=== PATIENT | male | born 1940 | race Caucasian/White ===

== ENCOUNTER 2021-07-14 15:43 | Inpatient (IN) | payer MEDICARE ==
[2021-07-14 16:41] LABS: #Eosinphils 0.1 thou/uL (0.0-0.7); #Lymphocytes 0.8 thou/uL (1.20-3.40); #Monocytes 0.4 thou/uL (0.11-0.59); #Neutrophils 3.2 thou/uL (1.40-6.50); %Basophils 0.4 % (0.0-1.0); %Eosinophils 1.8 % (0.0-10.0); %Lymphocytes 17.7 % (21.0-51.0); %Neutrophils 72.1 % (42.0-75.0); Hemoglobin 12.7 g/dL (14.0-18.0); Mean Corpuscular HGB CONC 32.4 g/dL (32.0-36.0); Mean Corpuscular Hemoglobin 30.7 pg (27.0-31.0); Mean Corpuscular Volume 94.9 fL (78.0-98.0); Mean Platelet Volume 7.1 fL (7.4-10.4); Platelet Count 180 thou/uL (130-400); RBC Distribution Width 15.6 % (11.5-14.5); Red Blood Cell (RBC) Count 4.13 mill/uL (4.70-6.10); White Blood Cell (WBC) Count 4.4 thou/uL (4.8-10.8)
[2021-07-14 17:14] LABS: ALT (SGPT) 25 U/L (8-55); AST (SGOT) 26 U/L (5-34); Albumin 3.5 g/dL (3.4-4.8); Alkaline Phosphatase 103 U/L (40-110); Anion Gap 14 mmol/L (10-20); BUN (Urea Nitrogen) 20 mg/dL (8.4-25.7); Bilirubin, Total 0.3 mg/dL (0.2-1.2); Calc. Creatinine Clearance 0 mL/min (70-130); Calcium 8.5 mg/dL (7.8-10.44); Carbon Dioxide 23 mmol/L (23-31); Chloride 103 mmol/L (98-107); Glucose 129 mg/dL (83-110); Protein, Total 6.5 g/dL (5.8-8.1); Sodium 136 mmol/L (136-145)
[2021-07-14 17:34] LABS: CKMB 3.8 ng/mL (0-6.6)
[2021-07-14] MEDS ORDERED: Boostrix 0.5 ML (Tdap) VIAL ONE (18:04)
[2021-07-14] MEDS ORDERED: Cephalexin 250 MG CAP ONE (18:37)
[2021-07-14] MEDS ORDERED: Bacitracin 1 PK ONE ×2 (18:40→18:44)
[2021-07-14 19:49] LABS: Lactic Acid 1.5 mmol/L (0.5-2.2)
[2021-07-14] MEDS ORDERED: Ondansetron PF 4 MG/2 ML Vial IVP PRN (20:10)
[2021-07-14] MEDS ORDERED: Acetaminophen 650 MG Suppository PR PRN (20:10)
[2021-07-14] MEDS ORDERED: Ondansetron ODT 4 MG TAB PO PRN (20:10)
[2021-07-14] MEDS ORDERED: Acetaminophen 325 MG TAB PO PRN (20:10)
[2021-07-14] MEDS ORDERED: Atropine Sulfate 1 mg/1 ml Vial IVP PRN (20:13)
[2021-07-14 23:15] LABS: Troponin I 0.059 ng/mL (< 0.028)
[2021-07-14 23:53] VITALS: BMI 22.7
[2021-07-15] MEDS ORDERED: HYDROcodone/Acetaminophen 5/325 mg Tablet PO PRN ×2 (04:55→16:45)
[2021-07-15 05:03] LABS: #Eosinphils 0.1 thou/uL (0.0-0.7); #Lymphocytes 0.9 thou/uL (1.20-3.40); #Monocytes 0.5 thou/uL (0.11-0.59); #Neutrophils 3.3 thou/uL (1.40-6.50); %Basophils 0.2 % (0.0-1.0); %Eosinophils 1.3 % (0.0-10.0); %Lymphocytes 19.1 % (21.0-51.0); %Monocytes 10.5 % (0.0-10.0); %Neutrophils 68.9 % (42.0-75.0); Mean Corpuscular HGB CONC 32.4 g/dL (32.0-36.0); Mean Corpuscular Hemoglobin 30.6 pg (27.0-31.0); Mean Corpuscular Volume 94.3 fL (78.0-98.0); Mean Platelet Volume 7.2 fL (7.4-10.4); Platelet Count 185 thou/uL (130-400); RBC Distribution Width 15.8 % (11.5-14.5); Red Blood Cell (RBC) Count 4.26 mill/uL (4.70-6.10); White Blood Cell (WBC) Count 4.8 thou/uL (4.8-10.8)
[2021-07-15 05:31] LABS: Anion Gap 11 mmol/L (10-20); BUN (Urea Nitrogen) 17 mg/dL (8.4-25.7); Calc. Creatinine Clearance 82 mL/min (70-130); Calcium 8.9 mg/dL (7.8-10.44); Carbon Dioxide 25 mmol/L (23-31); Chloride 104 mmol/L (98-107); Glucose 111 mg/dL (83-110); Potassium 4.3 mmol/L (3.5-5.1); Sodium 136 mmol/L (136-145)
[2021-07-15] MEDS: Lisinopril 5 MG TAB PO SCH ×2 (08:20→20:47)
[2021-07-15] MEDS: Diazepam 5 MG TAB PO SCH ×2 (08:20→20:48)
[2021-07-15] MEDS: Venlafaxine HCl XR 150 MG CAP PO SCH (08:20)
[2021-07-15] MEDS ORDERED: HYDROcodone/Acetaminophen 10/325 mg Tablet PO SCH (09:00)
[2021-07-15 12:19] LABS: SARS-CoV-2 PCR by NAA Not Detected (NotDetected)
[2021-07-15] MEDS: Docusate 100 MG CAP PO SCH (20:49)
[2021-07-16 04:59] LABS: Cardiac Risk 4.3 (Less than 4.5)
[2021-07-16] MEDS ORDERED: Aspirin 81 mg Enteric Coated Tablet PO SCH (09:00)
[2021-07-16] MEDS ORDERED: Clopidogrel Bisulfate 75 MG TAB PO SCH (09:00)
[2021-07-16] MEDS: Venlafaxine HCl XR 150 MG CAP PO SCH (09:17)
[2021-07-16] MEDS: Lisinopril 5 MG TAB PO SCH (09:17)
[2021-07-16] MEDS: Docusate 100 MG CAP PO SCH ×2 (09:17→09:19)
[2021-07-16] MEDS: Diazepam 5 MG TAB PO SCH (09:17)
[2021-07-16] MEDS ORDERED: Dicyclomine 10 MG CAP PO PRN ×2 (09:47→09:53)
[2021-07-16 12:33] VITALS: BP 131/63; TEMP 98.4
[2021-07-16] MEDS ORDERED: Atorvastatin Calcium 10 MG TAB PO SCH (21:00)
[2021-07-18] MEDS ORDERED: Methotrexate Sodium 2.5 MG TAB PO SCH (09:00)
[2021-07-18] MEDS ORDERED: FLU VACC QS2021-22(65YR UP)/PF 240 MCG/0.7 ML SYRINGE IM ONE (09:00)
== END 2021-07-16 15:37 | disposition home health service (06) | DRG 563 ==
LOC: ERS 15:43 → 2NO 19:43
PROVIDERS: ADMIT Student in an Organized Health Care Education/Training Program; ATTEND Internal Medicine
DX: S62.336A Displaced fracture of neck of fifth metacarpal bone, right hand, initial encounter for closed fracture (principal); R29.6 Repeated falls; T44.7X5A Adverse effect of beta-adrenoreceptor antagonists, initial encounter; R00.1 Bradycardia, unspecified; G62.9 Polyneuropathy, unspecified; M19.90 Unspecified osteoarthritis, unspecified site; I25.10 Atherosclerotic heart disease of native coronary artery without angina pectoris; I10 Essential (primary) hypertension; R77.8 Other specified abnormalities of plasma proteins; I48.91 Unspecified atrial fibrillation; D64.9 Anemia, unspecified; M06.9 Rheumatoid arthritis, unspecified; T46.4X5A Adverse effect of angiotensin-converting-enzyme inhibitors, initial encounter; T50.2X5A Adverse effect of carbonic-anhydrase inhibitors, benzothiadiazides and other diuretics, initial encounter; W18.30XA Fall on same level, unspecified, initial encounter; I08.1 Rheumatic disorders of both mitral and tricuspid valves; F17.210 Nicotine dependence, cigarettes, uncomplicated; Z79.899 Other long term (current) drug therapy; Z91.81 History of falling; Z95.1 Presence of aortocoronary bypass graft; Z79.82 Long term (current) use of aspirin; Z79.02 Long term (current) use of antithrombotics/antiplatelets; Z95.5 Presence of coronary angioplasty implant and graft
CPT/HCPCS: 36415; 70450; 71045; 80048; 80053; 80061; 82553; 83605; 83880; 84484; 85025; 90471; 90715; 93005; 93010; 93306; U0003; U0005

== ENCOUNTER 2022-12-12 05:45 | Inpatient (IN) | payer MEDICARE, MEDICAID ==
[2022-12-12] MEDS ORDERED: Dicyclomine 20 MG/2 ML VIAL ONE (06:06)
[2022-12-12 06:38] LABS: #Eosinphils 0.1 thou/uL (0.0-0.7); #Lymphocytes 0.7 thou/uL (1.20-3.40); #Monocytes 0.5 thou/uL (0.11-0.59); %Basophils 0.6 % (0.0-1.0); %Eosinophils 1.2 % (0.0-10.0); %Lymphocytes 16.3 % (21.0-51.0); %Monocytes 12.4 % (0.0-10.0); %Neutrophils 69.5 % (42.0-75.0); Hemoglobin 11.8 g/dL (14.0-18.0); Mean Corpuscular HGB CONC 33.5 g/dL (32.0-36.0); Mean Corpuscular Hemoglobin 30.7 pg (27.0-31.0); Mean Corpuscular Volume 91.7 fl (78.0-98.0); Platelet Count 184 10x3/uL (130-400); RBC Distribution Width 17.1 % (11.5-14.5); Red Blood Cell (RBC) Count 3.83 mill/uL (4.70-6.10); White Blood Cell (WBC) Count 4.3 10x3/uL (4.8-10.8)
[2022-12-12 07:10] LABS: ALT (SGPT) 13 U/L (8-55); AST (SGOT) 37 U/L (5-34); Alkaline Phosphatase 81 U/L (40-110); Anion Gap 14 mmol/L (10-20); BUN (Urea Nitrogen) 16 mg/dL (8.4-25.7); Bilirubin, Total 0.2 mg/dL (0.2-1.2); Calc. Creatinine Clearance 0 mL/min (70-130); Calcium 8.9 mg/dL (7.8-10.44); Carbon Dioxide 20 mmol/L (23-31); Chloride 105 mmol/L (98-107); Estimated GFR 90; Globulin 4.2 g/dL (2.4-3.5); Glucose 102 mg/dL (83-110); Lipase 10 U/L (8-78); Potassium 4.9 mmol/L (3.5-5.1); Protein, Total 7.2 g/dL (5.8-8.1); Sodium 134 mmol/L (136-145)
[2022-12-12 07:27] LABS: CKMB 3.5 ng/mL (0-6.6)
[2022-12-12] MEDS ORDERED: Ondansetron PF 4 MG/2 ML Vial ONE (08:08)
[2022-12-12] MEDS ORDERED: Morphine 2 MG/ML VIAL ONE (08:08)
[2022-12-12 09:52] LABS: Bilirubin Negative (Negative); Blood, Urine Negative (Negative); Clarity Clear (Clear); Glucose, Urine (Dipstick) Normal (Negative); Ketone, Urine Negative (Negative); Leukocyte Negative Leu/uL (Negative); Nitrite Negative (Negative); Protein, Urine (Dipstick) Negative (Neg-Trace); Specific Gravity, Urine 1.046 (1.002-1.036); Urobilinogen Normal mg/dL (Less than 2); pH, Urine 6.5 (5.0-9.0)
[2022-12-12] MEDS ORDERED: Iopamidol 370 76% 100 ML VIAL ONE (10:01)
[2022-12-12] MEDS ORDERED: Cyclobenzaprine 10 MG TAB ONE (11:14)
[2022-12-12] MEDS: Cyclobenzaprine 10 MG TAB PO PRN ×2 (11:19→20:29)
[2022-12-12] MEDS ORDERED: Nitroglycerin 0.4 MG TAB (25 Tab Bottle) SL PRN (14:28)
[2022-12-12 14:35] VITALS: BMI 19.0
[2022-12-12] MEDS ORDERED: Simethicone Chewable 80 MG TAB PO PRN (15:00)
[2022-12-12] MEDS ORDERED: Docusate 100 MG CAP PO PRN (15:00)
[2022-12-12] MEDS ORDERED: Dicyclomine 10 MG CAP PO PRN (15:00)
[2022-12-12 15:47] LABS: Troponin I 0.108 ng/mL (< 0.028)
[2022-12-12] MEDS: Carvedilol 3.125 MG TAB PO SCH (20:29)
[2022-12-12] MEDS: Melatonin 3 MG TAB PO SCH (20:29)
[2022-12-13] MEDS: Sodium Chloride 1 GM TAB PO SCH (10:08)
[2022-12-13] MEDS: Senokot 8.6 MG TAB PO SCH (10:08)
[2022-12-13] MEDS: Ascorbic Acid 500 mg Chewable Tablet PO SCH (10:08)
[2022-12-13] MEDS: Aspirin Chewable 81 MG TAB PO SCH (10:08)
[2022-12-13] MEDS: CO Q-10 CAPSULE 100 MG PO SCH (10:08)
[2022-12-13] MEDS: Venlafaxine HCl XR 75 MG CAP PO SCH (10:08)
[2022-12-13] MEDS: Cholecalciferol 1,000 UNITS (25 MCG) TAB PO SCH (10:08)
[2022-12-13] MEDS: Calcium Carbonate 600 MG TAB PO SCH (10:08)
[2022-12-13] MEDS: Folic Acid 1 MG TAB PO SCH (10:08)
[2022-12-13] MEDS: Hydroxychloroquine Sulfate 200 MG TAB PO SCH (10:08)
[2022-12-13] MEDS: Carvedilol 3.125 MG TAB PO SCH ×2 (10:09→20:14)
[2022-12-13] MEDS: Gabapentin 300 MG CAP PO SCH (10:09)
[2022-12-13] MEDS: Promethazine HCl 12.5 MG in Sodium Chloride 0.9% 50 ML IVPB PRN ×2 (11:07→21:29)
[2022-12-13] MEDS: Melatonin 3 MG TAB PO SCH (20:14)
[2022-12-13] MEDS: Lorazepam 0.5 MG TAB PO PRN (20:14)
[2022-12-14 08:11] LABS: #Eosinphils 0.1 thou/uL (0.0-0.7); #Lymphocytes 1.3 thou/uL (1.20-3.40); #Monocytes 0.7 thou/uL (0.11-0.59); #Neutrophils 3.4 thou/uL (1.40-6.50); %Basophils 0.4 % (0.0-1.0); %Eosinophils 2.6 % (0.0-10.0); %Lymphocytes 22.5 % (21.0-51.0); %Monocytes 13.2 % (0.0-10.0); %Neutrophils 61.3 % (42.0-75.0); Hemoglobin 11.7 g/dL (14.0-18.0); Mean Corpuscular HGB CONC 31.5 g/dL (32.0-36.0); Mean Corpuscular Hemoglobin 28.6 pg (27.0-31.0); Mean Corpuscular Volume 90.9 fl (78.0-98.0); Mean Platelet Volume 6.5 fL (7.4-10.4); Platelet Count 246 10x3/uL (130-400); RBC Distribution Width 16.8 % (11.5-14.5); White Blood Cell (WBC) Count 5.5 10x3/uL (4.8-10.8)
[2022-12-14 08:36] LABS: ALT (SGPT) 13 U/L (8-55); AST (SGOT) 23 U/L (5-34); Albumin 3.4 g/dL (3.4-4.8); Alkaline Phosphatase 90 U/L (40-110); Anion Gap 11 mmol/L (10-20); BUN (Urea Nitrogen) 24 mg/dL (8.4-25.7); Bilirubin, Total 0.3 mg/dL (0.2-1.2); Calc. Creatinine Clearance 68 mL/min (70-130); Carbon Dioxide 23 mmol/L (23-31); Chloride 104 mmol/L (98-107); Estimated GFR 90; Globulin 3.7 g/dL (2.4-3.5); Glucose 106 mg/dL (83-110); Potassium 4.3 mmol/L (3.5-5.1); Protein, Total 7.1 g/dL (5.8-8.1); Sodium 134 mmol/L (136-145)
[2022-12-14] MEDS: Cholecalciferol 1,000 UNITS (25 MCG) TAB PO SCH (09:00)
[2022-12-14] MEDS: CO Q-10 CAPSULE 100 MG PO SCH (09:00)
[2022-12-14] MEDS: Folic Acid 1 MG TAB PO SCH (09:00)
[2022-12-14] MEDS: Ascorbic Acid 500 mg Chewable Tablet PO SCH (09:00)
[2022-12-14] MEDS: Aspirin Chewable 81 MG TAB PO SCH (09:00)
[2022-12-14] MEDS: Senokot 8.6 MG TAB PO SCH (09:01)
[2022-12-14] MEDS: Sodium Chloride 1 GM TAB PO SCH (09:01)
[2022-12-14] MEDS: Carvedilol 3.125 MG TAB PO SCH ×2 (09:01→21:23)
[2022-12-14] MEDS: Calcium Carbonate 600 MG TAB PO SCH (09:01)
[2022-12-14] MEDS: Gabapentin 300 MG CAP PO SCH (09:01)
[2022-12-14] MEDS: Hydroxychloroquine Sulfate 200 MG TAB PO SCH (09:04)
[2022-12-14] MEDS: Venlafaxine HCl XR 75 MG CAP PO SCH (09:05)
[2022-12-14] MEDS: Promethazine HCl 12.5 MG in Sodium Chloride 0.9% 50 ML IVPB PRN (10:04)
[2022-12-14] MEDS: Melatonin 3 MG TAB PO SCH (21:23)
[2022-12-14] MEDS: Lorazepam 0.5 MG TAB PO PRN (21:24)
[2022-12-15] MEDS: Promethazine HCl 12.5 MG in Sodium Chloride 0.9% 50 ML IVPB PRN (09:08)
[2022-12-15] MEDS: Venlafaxine HCl XR 75 MG CAP PO SCH (09:49)
[2022-12-15] MEDS: Gabapentin 300 MG CAP PO SCH (09:49)
[2022-12-15] MEDS: Aspirin Chewable 81 MG TAB PO SCH (09:49)
[2022-12-15] MEDS: Senokot 8.6 MG TAB PO SCH (09:49)
[2022-12-15] MEDS: Cholecalciferol 1,000 UNITS (25 MCG) TAB PO SCH (09:50)
[2022-12-15] MEDS: Calcium Carbonate 600 MG TAB PO SCH (09:50)
[2022-12-15] MEDS: Folic Acid 1 MG TAB PO SCH (09:50)
[2022-12-15] MEDS: Carvedilol 3.125 MG TAB PO SCH (09:50)
[2022-12-15] MEDS: Sodium Chloride 1 GM TAB PO SCH (09:50)
[2022-12-15] MEDS: Ascorbic Acid 500 mg Chewable Tablet PO SCH (09:50)
[2022-12-15] MEDS: Hydroxychloroquine Sulfate 200 MG TAB PO SCH (09:50)
[2022-12-15] MEDS: CO Q-10 CAPSULE 100 MG PO SCH (09:50)
[2022-12-15 16:11] VITALS: BP 105/52; TEMP 98.5
[2022-12-18] MEDS ORDERED: Methotrexate Sodium 2.5 MG TAB PO SCH (09:00)
== END 2022-12-15 17:27 | DRG 392 ==
LOC: ERS 05:45 → ERHOLD 09:19 → 2NO 14:24 → OBSVTOIN 12-14 16:14
PROVIDERS: ADMIT Internal Medicine; ATTEND Internal Medicine
DX: R10.11 Right upper quadrant pain (principal); R07.9 Chest pain, unspecified; I10 Essential (primary) hypertension; I48.91 Unspecified atrial fibrillation; I25.10 Atherosclerotic heart disease of native coronary artery without angina pectoris; G62.9 Polyneuropathy, unspecified; M06.9 Rheumatoid arthritis, unspecified; R10.9 Unspecified abdominal pain; E78.5 Hyperlipidemia, unspecified; I73.9 Peripheral vascular disease, unspecified; R77.8 Other specified abnormalities of plasma proteins; Z98.890 Other specified postprocedural states; Z95.5 Presence of coronary angioplasty implant and graft; Z95.1 Presence of aortocoronary bypass graft; Z79.899 Other long term (current) drug therapy; Z95.820 Peripheral vascular angioplasty status with implants and grafts; Z79.82 Long term (current) use of aspirin; Z87.891 Personal history of nicotine dependence
CPT/HCPCS: 36415; 71275; 74174; 76705; 80053; 81003; 82553; 83690; 84484; 85025; 87086; 93005; 93306; 94760; G0378; J2272; J2405; J2550

== ENCOUNTER 2025-05-02 00:19 | Inpatient (IN) | payer MEDICARE, MEDICAID ==
[2025-05-02 00:57] LABS: #Basophils 0.03 10x3/uL (0.0-0.2); #Eosinophils 0.14 10x3/uL (0.0-0.7); #Monocytes 0.56 10x3/uL (0.11-0.59); #Neutrophils 4.89 10x3/uL (1.40-6.50); %Basophils 0.5 % (0.0-1.0); %Eosinophils 2.2 % (0.0-10.0); %Lymphocytes 9.6 % (21.0-51.0); %Monocytes 9.0 % (0.0-10.0); %Neutrophils 78.4 % (42.0-75.0); Hematocrit 26.7 % (42.0-52.0); Hemoglobin 7.5 g/dL (14.0-18.0); Mean Corpuscular Hemoglobin 21.2 pg (27.0-31.0); Mean Corpuscular Volume 75.4 fL (78.0-98.0); Platelet Count 212 10x3/uL (130-400); Red Blood Cell (RBC) Count 3.54 mill/uL (4.70-6.10); White Blood Cell (WBC) Count 6.24 10x3/uL (4.8-10.8)
[2025-05-02 01:10] LABS: INR-International Normal Ratio 1.5; Prothrombin Time 17.9 sec (12.0-14.7)
[2025-05-02 01:11] LABS: PTT 39.0 sec (22.9-36.1)
[2025-05-02 01:12] LABS: ALT (SGPT) 8 U/L (Less than 45); AST (SGOT) 21 U/L (11-34); Albumin 3.2 g/dL (3.1-4.5); Alkaline Phosphatase 80 U/L (40-110); Anion Gap 13 mmol/L (10-20); BUN (Urea Nitrogen) 19 mg/dL (8.4-25.7); Bilirubin, Total 0.3 mg/dL (0.3-1.2); Calc. Creatinine Clearance 0 mL/min (70-130); Calcium 8.6 mg/dL (7.8-10.44); Carbon Dioxide 25 mmol/L (23-31); Chloride 101 mmol/L (98-107); Globulin 4.1 g/dL (2.4-3.5); Glucose 103 mg/dL (83-110); Lipase 10 U/L (8-78); Potassium 4.2 mmol/L (3.5-5.1); Sodium 135 mmol/L (136-145)
[2025-05-02] MEDS ORDERED: diphenhydrAMINE 50 MG/ML VIAL ONE (01:13)
[2025-05-02] MEDS ORDERED: Pantoprazole 40 MG VIAL ONE (01:14)
[2025-05-02] MEDS ORDERED: Famotidine/PF 20 mg/2ml Vial ONE (01:14)
[2025-05-02 05:24] LABS: Bacteria/HPF None Seen HPF (None Seen); CAUTI Indications for Culture Alt mental st,lethar; Glucose, Urine (Dipstick) Normal (Negative); Leukocyte Negative Leu/uL (Negative); Protein, Urine (Dipstick) Negative (Neg-Trace); RBC/HPF 0-3 HPF (0-3); Specific Gravity, Urine 1.019 (1.002-1.036); WBC/HPF 0-3 HPF (0-3)
[2025-05-02 05:26] LABS: Urine Culture Reflex No No
[2025-05-02] MEDS ORDERED: Enoxaparin 80 MG (0.8 mL) SYRINGE ONE (07:11)
[2025-05-02] MEDS ORDERED: Calcium Carbonate 500 MG ChewTAB PO PRN (09:11)
[2025-05-02] MEDS ORDERED: Acetaminophen 325 MG TAB PO PRN (09:11)
[2025-05-02] MEDS ORDERED: Ondansetron PF 4 MG/2 ML Vial IVP PRN (09:11)
[2025-05-02] MEDS ORDERED: Electrolyte Replacement Protocol 1 EACH FS SCH (09:15)
[2025-05-02 09:34] VITALS: BMI 25.5
[2025-05-02] MEDS ORDERED: Iopamidol 370 76% 100 ML VIAL ONE (13:35)
[2025-05-02] MEDS ORDERED: OLANZapine 10 MG VIAL IM ONE (13:55)
[2025-05-02] MEDS: OLANZapine 10 MG VIAL IM SCH (14:21)
[2025-05-02] MEDS: Enoxaparin 100 MG (1 mL) SYRINGE SC SCH (23:14)
[2025-05-03 04:52] LABS: #Basophils Less than 0.03 10x3/uL (0.0-0.2); #Eosinophils Less than 0.03 10x3/uL (0.0-0.7); #Monocytes 0.62 10x3/uL (0.11-0.59); #Neutrophils 4.02 10x3/uL (1.40-6.50); %Basophils 0.4 % (0.0-1.0); %Eosinophils 0.2 % (0.0-10.0); %Lymphocytes 11.3 % (21.0-51.0); %Monocytes 11.7 % (0.0-10.0); %Neutrophils 76.0 % (42.0-75.0); Hematocrit 27.7 % (42.0-52.0); Hemoglobin 7.5 g/dL (14.0-18.0); Mean Corpuscular Hemoglobin 20.7 pg (27.0-31.0); Mean Corpuscular Volume 76.3 fL (78.0-98.0); Platelet Count 193 10x3/uL (130-400); Red Blood Cell (RBC) Count 3.63 mill/uL (4.70-6.10); White Blood Cell (WBC) Count 5.29 10x3/uL (4.8-10.8)
[2025-05-03 05:01] LABS: ALT (SGPT) 7 U/L (Less than 45); AST (SGOT) 34 U/L (11-34); Albumin 3.1 g/dL (3.1-4.5); Alkaline Phosphatase 70 U/L (40-110); Anion Gap 16 mmol/L (10-20); BUN (Urea Nitrogen) 15 mg/dL (8.4-25.7); Bilirubin, Total 0.4 mg/dL (0.3-1.2); Calc. Creatinine Clearance 100 mL/min (70-130); Calcium 9.0 mg/dL (7.8-10.44); Carbon Dioxide 22 mmol/L (23-31); Chloride 109 mmol/L (98-107); Globulin 4.1 g/dL (2.4-3.5); Glucose 91 mg/dL (83-110); Potassium 4.2 mmol/L (3.5-5.1); Sodium 143 mmol/L (136-145)
[2025-05-03] MEDS: Pantoprazole 40 MG VIAL IVP SCH (08:18)
[2025-05-03] MEDS ORDERED: Nitroglycerin 0.4 MG TAB (25 Tab Bottle) SL PRN (10:06)
[2025-05-03] MEDS ORDERED: Simethicone Chewable 80 MG TAB PO PRN (10:06)
[2025-05-03] MEDS: Carvedilol 3.125 MG TAB PO SCH ×2 (10:26→20:36)
[2025-05-03] MEDS: Polyethylene Glycol OPTH DROP 15 ML BOT EA EYE SCH (17:13)
[2025-05-03] MEDS: Lisinopril 2.5 MG TAB PO SCH (20:35)
[2025-05-03] MEDS: QUEtiapine 25 MG TAB PO SCH (20:36)
[2025-05-03] MEDS ORDERED: Senokot 8.6 MG TAB PO SCH (21:00)
[2025-05-03] MEDS ORDERED: CO Q-10 CAPSULE 100 MG PO SCH (21:00)
[2025-05-04 05:54] LABS: Magnesium 2.0 mg/dL (1.6-2.6)
[2025-05-04] MEDS: Dicyclomine 20 MG TAB PO SCH (08:54)
[2025-05-04] MEDS: Enoxaparin 40 MG (0.4 mL) SYRINGE SC SCH (08:55)
[2025-05-04] MEDS: QUEtiapine 25 MG TAB PO SCH ×2 (08:55→22:01)
[2025-05-04] MEDS: Magnesium 2 GM/50 ML(in water) 2 GM in Premix 1 BAG IVPB SCH (08:56)
[2025-05-04] MEDS ORDERED: Aspirin Chewable 81 MG TAB PO SCH (09:00)
[2025-05-04] MEDS ORDERED: Pantoprazole 40 MG DR.TAB PO SCH (09:00)
[2025-05-04] MEDS ORDERED: Furosemide 20 MG TAB PO SCH (09:00)
[2025-05-04] MEDS ORDERED: Folic Acid 1 MG TAB PO SCH (09:00)
[2025-05-04] MEDS ORDERED: Cholecalciferol 1,000 UNITS (25 MCG) TAB PO SCH (09:00)
[2025-05-04] MEDS: SYSTANE 0.3-0.4% EYE DROPS (30 ML) EA EYE SCH (22:03)
[2025-05-05 09:02] LABS: #Basophils Less than 0.03 10x3/uL (0.0-0.2); #Eosinophils 0.06 10x3/uL (0.0-0.7); #Monocytes 0.53 10x3/uL (0.11-0.59); #Neutrophils 2.64 10x3/uL (1.40-6.50); %Basophils 0.5 % (0.0-1.0); %Eosinophils 1.6 % (0.0-10.0); %Lymphocytes 13.5 % (21.0-51.0); %Monocytes 14.0 % (0.0-10.0); %Neutrophils 69.9 % (42.0-75.0); Hematocrit 26.5 % (42.0-52.0); Hemoglobin 7.2 g/dL (14.0-18.0); Mean Corpuscular Hemoglobin 21.1 pg (27.0-31.0); Mean Corpuscular Volume 77.5 fL (78.0-98.0); Platelet Count 218 10x3/uL (130-400); Red Blood Cell (RBC) Count 3.42 mill/uL (4.70-6.10); White Blood Cell (WBC) Count 3.78 10x3/uL (4.8-10.8)
[2025-05-05 09:07] LABS: Anion Gap 12 mmol/L (10-20); BUN (Urea Nitrogen) 19 mg/dL (8.4-25.7); Calc. Creatinine Clearance 113 mL/min (70-130); Calcium 8.2 mg/dL (7.8-10.44); Carbon Dioxide 20 mmol/L (23-31); Chloride 114 mmol/L (98-107); Glucose 79 mg/dL (83-110); Potassium 3.7 mmol/L (3.5-5.1); Sodium 142 mmol/L (136-145)
[2025-05-05 10:44] LABS: Anisocytosis SLIGHT = 6-15 cells HPF (0-5); Microcytosis SLIGHT = 6-15 cells HPF (0-5); Platelet Adequacy Comment Platelets Normal; Polychromasia SLIGHT = 2-3 cells HPF (0-2); Schistocytes SLIGHT = 2-5 cells HPF (0-1); Spherocytes MODERATE= 6-15 cells HPF (None Seen)
[2025-05-05] MEDS: QUEtiapine 25 MG TAB PO SCH (21:10)
[2025-05-05] MEDS: Dextrose 50% Abboject 50 ML SYRINGE ONE (23:51)
[2025-05-07 09:16] LABS: Hematocrit 27.5 % (42.0-52.0); Hemoglobin 7.5 g/dL (14.0-18.0); Mean Corpuscular Hemoglobin 21.6 pg (27.0-31.0); Mean Corpuscular Volume 79.0 fL (78.0-98.0); Platelet Count 214 10x3/uL (130-400); Red Blood Cell (RBC) Count 3.48 mill/uL (4.70-6.10); White Blood Cell (WBC) Count 3.98 10x3/uL (4.8-10.8)
[2025-05-07 09:38] LABS: Anion Gap 15 mmol/L (10-20); BUN (Urea Nitrogen) 12 mg/dL (8.4-25.7); Calc. Creatinine Clearance 125 mL/min (70-130); Calcium 8.2 mg/dL (7.8-10.44); Carbon Dioxide 17 mmol/L (23-31); Chloride 114 mmol/L (98-107); Glucose 80 mg/dL (83-110); Potassium 3.6 mmol/L (3.5-5.1); Sodium 142 mmol/L (136-145)
[2025-05-07] MEDS: Carvedilol 6.25 MG TAB PO SCH (09:48)
[2025-05-07] MEDS: Furosemide 40 MG (4 mL) VIAL SLOW IVP SCH (15:31)
[2025-05-07] MEDS ORDERED: Metoprolol Tartrate 5 MG (5 mL) VIAL IVP PRN (17:39)
[2025-05-07] MEDS: Lisinopril 5 MG TAB PO SCH (21:29)
[2025-05-08 05:06] LABS: #Basophils 0.03 10x3/uL (0.0-0.2); #Eosinophils 0.08 10x3/uL (0.0-0.7); #Monocytes 0.83 10x3/uL (0.11-0.59); #Neutrophils 3.08 10x3/uL (1.40-6.50); %Basophils 0.6 % (0.0-1.0); %Eosinophils 1.7 % (0.0-10.0); %Lymphocytes 14.9 % (21.0-51.0); %Monocytes 17.5 % (0.0-10.0); %Neutrophils 64.9 % (42.0-75.0); Hematocrit 27.6 % (42.0-52.0); Hemoglobin 7.7 g/dL (14.0-18.0); Mean Corpuscular Hemoglobin 21.4 pg (27.0-31.0); Mean Corpuscular Volume 76.7 fL (78.0-98.0); Platelet Count 239 10x3/uL (130-400); Red Blood Cell (RBC) Count 3.60 mill/uL (4.70-6.10); White Blood Cell (WBC) Count 4.75 10x3/uL (4.8-10.8)
[2025-05-08 05:10] LABS: Anion Gap 16 mmol/L (10-20); BUN (Urea Nitrogen) 11 mg/dL (8.4-25.7); Calc. Creatinine Clearance 113 mL/min (70-130); Calcium 8.3 mg/dL (7.8-10.44); Carbon Dioxide 22 mmol/L (23-31); Chloride 106 mmol/L (98-107); Glucose 84 mg/dL (83-110); Potassium 3.2 mmol/L (3.5-5.1); Sodium 141 mmol/L (136-145)
[2025-05-08] MEDS: Furosemide 20 MG (2 mL) VIAL SLOW IVP SCH (09:05)
[2025-05-10 05:52] LABS: Anion Gap 17 mmol/L (10-20); BUN (Urea Nitrogen) 20 mg/dL (8.4-25.7); Calc. Creatinine Clearance 96 mL/min (70-130); Calcium 8.6 mg/dL (7.8-10.44); Carbon Dioxide 22 mmol/L (23-31); Chloride 106 mmol/L (98-107); Glucose 111 mg/dL (83-110); Magnesium 1.6 mg/dL (1.6-2.6); Potassium 3.6 mmol/L (3.5-5.1); Sodium 141 mmol/L (136-145)
[2025-05-10] MEDS: Magnesium 2 GM/50 ML(in water) 2 GM in Premix 1 BAG IVPB SCH (08:02)
[2025-05-10] MEDS: Acetaminophen 325 MG TAB PO SCH (19:43)
[2025-05-11 10:41] VITALS: BMI 25.0
[2025-05-11 13:20] LABS: #Basophils Less than 0.03 10x3/uL (0.0-0.2); #Eosinophils 0.04 10x3/uL (0.0-0.7); #Monocytes 0.52 10x3/uL (0.11-0.59); #Neutrophils 2.48 10x3/uL (1.40-6.50); %Basophils 0.5 % (0.0-1.0); %Eosinophils 1.1 % (0.0-10.0); %Lymphocytes 17.5 % (21.0-51.0); %Monocytes 14.0 % (0.0-10.0); %Neutrophils 66.6 % (42.0-75.0); Hematocrit 26.0 % (42.0-52.0); Hemoglobin 8.2 g/dL (14.0-18.0); Mean Corpuscular Hemoglobin 26.9 pg (27.0-31.0); Mean Corpuscular Volume 85.2 fL (78.0-98.0); Platelet Count 260 10x3/uL (130-400); Red Blood Cell (RBC) Count 3.05 mill/uL (4.70-6.10); White Blood Cell (WBC) Count 3.72 10x3/uL (4.8-10.8)
[2025-05-11 13:33] LABS: Anion Gap 15 mmol/L (10-20); BUN (Urea Nitrogen) 25 mg/dL (8.4-25.7); Calc. Creatinine Clearance 104 mL/min (70-130); Calcium 8.6 mg/dL (7.8-10.44); Carbon Dioxide 22 mmol/L (23-31); Chloride 106 mmol/L (98-107); Glucose 99 mg/dL (83-110); Magnesium 2.1 mg/dL (1.6-2.6); Potassium 3.5 mmol/L (3.5-5.1); Sodium 139 mmol/L (136-145)
[2025-05-12 08:48] VITALS: TEMP 98
[2025-05-12 12:28] VITALS: BP 115/72
== END 2025-05-12 17:54 | DRG 884 ==
LOC: ERS 00:19 → ERHOLD 07:51 → 2NO 22:35 → T4-A 05-08 15:49
PROVIDERS: ADMIT Student in an Organized Health Care Education/Training Program; ATTEND Internal Medicine
DX: F03.911 Unspecified dementia, unspecified severity, with agitation (principal); K55.069 Acute infarction of intestine, part and extent unspecified; G93.41 Metabolic encephalopathy; J81.0 Acute pulmonary edema; D62 Acute posthemorrhagic anemia; F05 Delirium due to known physiological condition; I25.10 Atherosclerotic heart disease of native coronary artery without angina pectoris; E78.5 Hyperlipidemia, unspecified; I48.0 Paroxysmal atrial fibrillation; N40.0 Benign prostatic hyperplasia without lower urinary tract symptoms; I10 Essential (primary) hypertension; M06.9 Rheumatoid arthritis, unspecified; J44.9 Chronic obstructive pulmonary disease, unspecified; K08.409 Partial loss of teeth, unspecified cause, unspecified class; R29.6 Repeated falls; Z98.890 Other specified postprocedural states; Z95.1 Presence of aortocoronary bypass graft; I25.2 Old myocardial infarction; Z87.891 Personal history of nicotine dependence; Z95.5 Presence of coronary angioplasty implant and graft; Z88.8 Allergy status to other drugs, medicaments and biological substances; Z91.041 Radiographic dye allergy status; Z79.82 Long term (current) use of aspirin; Z79.01 Long term (current) use of anticoagulants; Z79.899 Other long term (current) drug therapy
CPT/HCPCS: 36415; 36416; 70450; 71045; 74174; 74230; 80048; 80053; 81001; 83605; 83690; 83735; 83880; 84484; 85025; 85027; 85610; 85730; 86850; 86900; 86901; 87040; 87149; 93005; 96372; 96374; 96375; J1200; J1308; J1650; J1940; J2060; J2470; J2919; J3475; J3486; J7030; J7120; J7999; Q9967